=== PATIENT | male | born 1970 | race Two or more races ===

== ENCOUNTER 2019-03-01 21:21 | Inpatient (IN) | payer MEDICAID ==
[~2019-03-01] VITALS: Ht 170.2 cm; Wt 62.6 kg
--- NOTE | 2019-03-01 21:29 | NUR ---
Patient BIB private ambulance for c/o unwitnessed fall. Per report from EMS, patient was discovered on the ground on his left side. Patient is alert but disoriented, able to ambulate with assistance, and is unable to answer questions or provide any additional information. To room 4B, NEELIMA performed MSE.
[2019-03-01] MEDS ORDERED: BISA10SU61 RC (21:41)
[2019-03-01] MEDS ORDERED: QUET25TA PO ×2 (21:41)
[2019-03-01] MEDS ORDERED: VALP250C PO (21:41)
[2019-03-01] MEDS ORDERED: PHEN100C4 PO (21:41)
[2019-03-01] MEDS ORDERED: ACET325T53 PO (21:41)
[2019-03-01] MEDS ORDERED: IBUP-1953 PO (21:41)
--- NOTE | 2019-03-01 21:44 | NUR ---
A phone call was placed by NEELIMA to patient's residence, "[facility]," for further information wherein it was discovered that the patient is acting below his baseline mental status.
--- NOTE | 2019-03-01 21:53 | NUR ---
Patient to RADIOLOGY for CT via ryuma.
[2019-03-01 21:55] LABS: BASOPHILS % (AUTO) 0.5 % (0.0-2.0); EOSINOPHILS # (AUTO) 0.1 K/uL (0.0-0.7); EOSINOPHILS % (AUTO) 1.1 % (0.0-7.0); HEMATOCRIT 45.4 % (36.7-47.1); HEMOGLOBIN 15.6 g/dL (12.5-16.3); LYMPHOCYTES # (AUTO) 1.4 K/uL (20.0-40.0); LYMPHOCYTES % (AUTO) 21.6 % (20.5-51.5); MEAN CORPUSCULAR HEMOGLOBIN 30.1 uug (23.8-33.4); MEAN CORPUSCULAR HGB CONC 34 g/dL (32.5-36.3); MEAN CORPUSCULAR VOLUME 87.6 fL (73.0-96.2); MONOCYTES # (AUTO) 0.7 K/uL (2.0-10.0); MONOCYTES % (AUTO) 10.2 % (0.0-11.0); NEUTROPHILS # (AUTO) 4.3 K/uL (1.8-8.9); NEUTROPHILS % (AUTO) 66.6 % (38.5-71.5); PLATELET COUNT (AUTO) 99 K/uL (152-348); RED BLOOD CELL COUNT(AUTO) 5.18 MIL/uL (4.06-5.63); WHITE BLOOD COUNT (AUTO) 6.5 K/uL (3.6-10.2)
[2019-03-01 22:00] LABS: CREATININE 0.8 mg/dL (0.6-1.3); POTASSIUM 3.9 mmol/L (3.5-5.1)
[2019-03-01 22:13] LABS: ALANINE AMINOTRANSFERASE 20 U/L (16-63); ALKALINE PHOSPHATASE 138 U/L (50-136); ASPARTATE AMINOTRANSFERASE 24 U/L (15-37); BILIRUBIN,DIRECT 0.2 mg/dL (0.0-0.2); BILIRUBIN,TOTAL 0.5 mg/dL (0.2-1.0); TOTAL PROTEIN, SERUM 8.9 g/dL (6.4-8.2)
[2019-03-01 22:18] LABS: LYMPHOCYTES % (MANUAL) 18 % (20-40); MONOCYTES % (MANUAL) 2 % (2-10); NEUTROPHILS % (MANUAL) 80 % (42-75)
[2019-03-01 22:19] LABS: ETHANOL < 3 MG/DL (0-0)
--- NOTE | 2019-03-01 22:21 | NUR ---
Patient returned from RADIOLOGY, NAD noted.
[2019-03-01 22:39] LABS: *BILIRUBIN,URIN 1+ (NEGATIVE); *BLOOD, URINE NEGATIVE (NEGATIVE); *CLARITY,URINE CLEAR (CLEAR); *COLOR,URINE YELLOW (YELLOW); *KETONES,URINE TRACE (NEGATIVE); *UROBILINOGEN,URINE >=8.0 E.U./dl (NORMAL); LEUKOCYTE ESTERASE ,URINE NEGATIVE (NEGATIVE); NITRITE, URINE NEGATIVE (NEGATIVE); PH,URINE 6.5 (5.0-8.0); UGLUCOSE NEGATIVE (NEGATIVE)
[2019-03-01 22:39] LABS: THYROID STIMULATING HORMONE 3.705 mIU/mL (0.358-3.740)
[2019-03-01 22:45] LABS: BACTERIA,URINE NONE SEEN /HPF (NONE SEEN); MUCUS,URINE MANY /LPF (0-FEW); RBC,URINE 0-3 /HPF (0-3); SQUAMOUS EPITHELIAL CELL,UR FEW /HPF (NONE SEEN); WBC,URINE 0-3 /HPF (0-3)
--- NOTE | 2019-03-01 23:14 | NUR ---
Call placed to [facility] Nephrology, Leticia Felix has been paged.
--- NOTE | 2019-03-01 23:45 | NUR ---
2nd call placed to [facility] NEPHROLOGY, Dr. Fung has been paged.
--- NOTE | 2019-03-01 23:52 | NUR ---
Dr. Fung returned phone call
--- NOTE | 2019-03-02 00:15 | NUR ---
Pt. admitted to TELE, under care of Dr. DAVIES Belongs List completed
--- NOTE | 2019-03-02 00:40 | NUR ---
PATIENT RECEIVED ON GURNEY AND CONFUSED. NORMAL V/S AND STABLE CONDITION. NO SIGNS OF ACUTE DISTRESS. COMFORT MEASURES PROVIDED. BED IN LOWEST POSITION. SIDE RAILS X2 AND PADDED FOR SEIZURE PRECAUTIONS.
[2019-03-02 00:51] VITALS: BP 130/87
[2019-03-02] MEDS: IV NS 1000 ML 1,000 ML IV PRN ×2 (02:21→17:07)
[2019-03-02 04:00] VITALS: BP 133/72
[2019-03-02 06:28] LABS: BASOPHILS % (AUTO) 0.4 % (0.0-2.0); EOSINOPHILS # (AUTO) 0.1 K/uL (0.0-0.7); HEMATOCRIT 41.5 % (36.7-47.1); HEMOGLOBIN 14.3 g/dL (12.5-16.3); LYMPHOCYTES # (AUTO) 1.2 K/uL (20.0-40.0); LYMPHOCYTES % (AUTO) 25.7 % (20.5-51.5); MEAN CORPUSCULAR HGB CONC 34 g/dL (32.5-36.3); MEAN CORPUSCULAR VOLUME 87.3 fL (73.0-96.2); MONOCYTES # (AUTO) 0.5 K/uL (2.0-10.0); MONOCYTES % (AUTO) 10.2 % (0.0-11.0); NEUTROPHILS # (AUTO) 2.9 K/uL (1.8-8.9); NEUTROPHILS % (AUTO) 61.7 % (38.5-71.5); PLATELET COUNT (AUTO) 92 K/uL (152-348); RED BLOOD CELL COUNT(AUTO) 4.75 MIL/uL (4.06-5.63); WHITE BLOOD COUNT (AUTO) 4.8 K/uL (3.6-10.2)
[2019-03-02 06:48] LABS: CREATININE 0.7 mg/dL (0.6-1.3); POTASSIUM 3.8 mmol/L (3.5-5.1)
--- NOTE | 2019-03-02 07:29 | NUR ---
PATIENT INTERMITTENTLY SLEEPING AND CONFUSED. NO SIGNS OF ACUTE DISTRESS OR PAIN. COMFORT MEASURES PROVIDED. BED IN LOWEST POSITION. SIDE RAILS X2 AND PADDED. SEIZURE PRECAUTIONS PROVIDED WITH OXYGEN AND SUCTION AT BEDSIDE. 1:1 SITTER AT BEDSIDE FOR SAFETY. Addendum: 03/02/19 at 0733 by DARVIN RICHARDSON RN CORRECTION: NO 1:1 SITTER AT BEDSIDE.
[2019-03-02] MEDS ORDERED: QUETIAPINE FUMARATE 25 MG TABLET PO PRN (07:30)
[2019-03-02] MEDS ORDERED: BISACODYL 10 MG SUPP.RECT RC PRN (07:30)
[2019-03-02] MEDS ORDERED: ACETAMINOPHEN 325 MG TABLET PO PRN (07:30)
[2019-03-02] MEDS ORDERED: IBUPROFEN 400 MG TABLET PO PRN (07:30)
[2019-03-02 07:46] LABS: EOSINOPHILS % (MANUAL) 1 % (0-8); LYMPHOCYTES % (MANUAL) 30 % (20-40); MONOCYTES % (MANUAL) 11 % (2-10); NEUTROPHILS % (MANUAL) 58 % (42-75)
[2019-03-02] MEDS: QUETIAPINE FUMARATE 25 MG TABLET PO SCH ×2 (08:23→17:08)
[2019-03-02] MEDS: VALPROIC ACID 250 MG CAPSULE PO SCH ×3 (09:39→17:07)
[2019-03-02 12:08] VITALS: BP 127/81
[2019-03-02 12:40] LABS: PHENYTOIN (DILANTIN) 34.8 ug/mL (10.0-20.0)
--- NOTE | 2019-03-02 12:45 | NUR ---
lab just called for critical level of Valpr. Acid of [address] Kenton Greenberg Addendum: 03/02/19 at 1851 by WILLIAMS ROJAS RN lab just called for critical level of PHENYTOIN of 34.[address] Fung or Yari
--- NOTE | 2019-03-02 12:55 | NUR ---
Called Dr. Fung office and left a msg about critical lab 34.5, waiting for call back
[2019-03-02 16:00] VITALS: BP 122/79
--- NOTE | 2019-03-02 18:51 | NUR ---
PATIENT IS CONFUSED AND NOT FOLLOWING COMMANDS, NO SOB OR DISTRESS THIS SHIFT, DILANTIN WAS D/C PER MD ORDER, TURNED AND REPOSITIONED Q 2 H, FLUIDS NS IS RUNNING AT 75ML/HR SAFETY MAINTAINED THIS SHIFT
[2019-03-02 20:06] VITALS: BP 115/72
[2019-03-02] MEDS ORDERED: PHENYTOIN SODIUM EXTENDED 100 MG CAPSULE.SA PO SCH (21:00)
[2019-03-03 00:54] VITALS: BP 110/77
[2019-03-03 04:00] VITALS: BP 130/83
[2019-03-03] MEDS: IV NS 1000 ML 1,000 ML IV PRN ×2 (06:03→19:53)
--- NOTE | 2019-03-03 08:00 | NUR ---
Pt confused even when Dr cannon, neuro, here to see patient. New order for EEG noted. IV on right arm intact and infusing as ordered. Side rails padded for seizure precaution. Bed alarm on for fall precaution. Call light is within reach. Addendum: 03/03/19 at 1847 by SLIME MENDEZ RN "Pt confused even when speaking with puerto rican speaker"
[2019-03-03] MEDS: QUETIAPINE FUMARATE 25 MG TABLET PO SCH ×2 (08:15→16:32)
[2019-03-03] MEDS: VALPROIC ACID 250 MG CAPSULE PO SCH ×3 (08:15→16:32)
[2019-03-03 11:27] VITALS: BP 141/83
--- NOTE | 2019-03-03 13:06 | NUR ---
WOUND CARE CONSULT: PT NOT SEEN YET FOR SKIN ASSESSMENT DUE TO PT EATING AT THIS TIME. DISCUSSED SKIN PROTECTION RECOMMENDATIONS WITH NURSING STAFF. FIRST STEP LOW AIRLOSS MATTRESS ORDERED BY NURSING STAFF. WILL SEE PRN. MOHAN IN AGREEMENT WITH PLAN OF CARE. CURRENT YFN SCORE IS 12.
[2019-03-03] MEDS ORDERED: Z GUARD REMEDY PASTE 57 GM TUBE TOP PRN (13:15)
[2019-03-03 15:33] VITALS: BP 128/72
--- NOTE | 2019-03-03 18:30 | NUR ---
Pt is in no acute distress. No fall noted - fall precaution effective. No seizure noted this shift. Call light is within reach. Pt still confused.
--- NOTE | 2019-03-03 19:00 | NUR ---
RECEIVED PATIENT SLEEPING COMFORTABLY IN BED. NO OBSERVATION OF ACUTE DISTRESS OR DISCOMFORT NOTED. ALL SAFETY AND FALL PRECAUTION MEASURES IN PLACE. BED IN LOWEST POSITION AND BRAKE APPLIED. 2 SIDE RAILS UP AND LOCKED. CALL LIGHT WITHIN REACH AT ALL TIMES. WILL CONTINUE TO MONITOR.
[2019-03-03 20:04] VITALS: BP 131/78
[2019-03-03] MEDS: Z GUARD REMEDY PASTE 57 GM TUBE TOP SCH (20:44)
--- NOTE | 2019-03-04 06:30 | NUR ---
PATIENT SLEPT COMFORTABLY THROUGHOUT NIGHT. NO OBSERVATIONS OF ACUTE DISTRESS OR DISCOMFORT SEEN. FALL AND SAFETY PRECAUTION MEASURES IN PLACE. BED IN LOWEST POSITION WITH BRAKE APPLIED. 2 SIDE RAILS UP AND LOCKED. SEIZURE PRECAUTIONS IN PLACE. VS WNL AND PATIENT IS STABLE. CALL LIGHT WITHIN REACH AT ALL TIMES.
[2019-03-04 06:31] VITALS: BP 113/67
--- NOTE | 2019-03-04 07:10 | NUR ---
RECEIVED PATIENT IN BED, AOX2. PATIENT DENIES PAIN OR SOB. NO OBSERVATIONS OF ACUTE DISTRESS OR DISCOMFORT SEEN. FALL AND SAFETY PRECAUTION MEASURES IN PLACE. BED IN LOWEST POSITION BRAKES IN PLACE. 2 SIDE RAILS UP AND LOCKED. SEIZURE PRECAUTIONS IN PLACE. CALL LIGHT WITHIN REACH AT ALL TIMES.
[2019-03-04] MEDS ORDERED: PHEN100C4 PO (07:50)
[2019-03-04] MEDS: VALPROIC ACID 250 MG CAPSULE PO SCH ×2 (08:37→12:55)
[2019-03-04] MEDS: QUETIAPINE FUMARATE 25 MG TABLET PO SCH (08:37)
[2019-03-04] MEDS: Z GUARD REMEDY PASTE 57 GM TUBE TOP SCH (09:05)
[2019-03-04 11:38] VITALS: BP 127/79
--- NOTE | 2019-03-04 12:00 | NUR ---
LAB NOTIFIED OF ELEVATED DILANTEN LEVELS OF 32.3 WHICH IS TRENDING DOWN. AWARE
--- NOTE | 2019-03-04 14:50 | NUR ---
PATIENT DISCHARGED TO [facility]. PATIENT IN STABLE CONDITION. VITAL SIGNS STABLE UPON DISCHARGE. DISCHARGED INSTRUCTION PROVIDED AND MEDICATION RECON PROVIDED. BELONGINGS SENT WITH PATIENT. PATIENT IS MISSING A BLANKET AND OBSERVATION ASSISTANT (DOMINIC)IS AWARE. IV REMOVED. PATIENT LEFT VIA W/C WITH THE ASSIST OF THE FOOD AND BEVERAGE COORDINATOR FOR THE ASSISTED LIVING FACILITY.
== END 2019-03-04 14:45 | DRG 204 ==
LOC: EDBD 21:22 → ER 21:22 → TELE3 03-02 00:13 → MEDSURG3 03-03 18:06
PROVIDERS: ADMIT Internal Medicine Nephrology; ATTEND Internal Medicine
DX: R55 Syncope and collapse (principal); G93.40 Encephalopathy, unspecified; F01.50 Vascular dementia, unspecified severity, without behavioral disturbance, psychotic disturbance, mood disturbance, and anxiety; G93.89 Other specified disorders of brain; T42.0X5A Adverse effect of hydantoin derivatives, initial encounter; Y92.099 Unspecified place in other non-institutional residence as the place of occurrence of the external cause; S06.9X0S Unspecified intracranial injury without loss of consciousness, sequela; Z87.820 Personal history of traumatic brain injury; G40.909 Epilepsy, unspecified, not intractable, without status epilepticus; X58.XXXS Exposure to other specified factors, sequela; R53.1 Weakness
CPT/HCPCS: 36415; 70030-TC; 70450; 71045; 72125; 80164; 84443; 85025; 93005; 93307; 93880; 95819; A4663; G0378; G0480; J7030